=== PATIENT | male | born 1975 | race Hispanic/Latino ===

== ENCOUNTER 2022-10-28 18:21 | Emergency (ER) | payer OTHER ==
[2022-10-28] MEDS ORDERED: Diphtheria,Pertussis(Acell),Tetanus Vaccine 0.5 ML Syringe IM ONE (18:35)
== END 2022-10-28 19:22 | disposition home or self-care (01) ==
LOC: JD.ED 18:21
DX: S61.232A Puncture wound without foreign body of right middle finger without damage to nail, initial encounter (principal); Z23 Encounter for immunization; W29.4XXA Contact with nail gun, initial encounter
CPT/HCPCS: 90471; 90715; 99283